=== PATIENT | male | born 1955 | race Caucasian/White ===

== ENCOUNTER → 2021-01-15 | Outpatient (CLI) | payer MEDICARE | LOC: KOH-I 11:26 | DX: R47.9 Unspecified speech disturbances (principal); R13.10 Dysphagia, unspecified; E11.9 Type 2 diabetes mellitus without complications; R90.89 Other abnormal findings on diagnostic imaging of central nervous system | CPT/HCPCS: 70450 ==

== ENCOUNTER → 2021-11-11 | Outpatient (CLI) | payer MEDICARE | LOC: RAD 08:30 | DX: R13.10 Dysphagia, unspecified (principal); R09.89 Other specified symptoms and signs involving the circulatory and respiratory systems | CPT/HCPCS: 74230; 92611-GN ==